=== PATIENT | male | born 1965 | race Caucasian/White ===

== ENCOUNTER 2017-01-02 07:58 | Emergency (ER) | payer OTHER ==
[2017-01-02 08:06] VITALS: RESP 18
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
[2017-01-02 09:14] VITALS: BP 112/68; PULSE 62; TEMP 98.4; O2SAT 96
== END 2017-01-02 09:13 | disposition home or self-care (01) ==
DX: S29.9XXA Unspecified injury of thorax, initial encounter (principal); S00.81XA Abrasion of other part of head, initial encounter; V19.9XXA Pedal cyclist (driver) (passenger) injured in unspecified traffic accident, initial encounter